=== PATIENT | male | born 1995 | race Two or more races ===

== ENCOUNTER 2025-06-17 10:32 | Emergency (ER) | payer OTHER, SELFPAY ==
[2025-06-17 10:36] VITALS: BP 127/77; PULSE 76; RESP 18; TEMP 36.9; O2SAT 99; BMI 35.5
--- NOTE | 2025-06-17 11:05 | PD.EDADULT ---
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 and some of the spit from the patient went into his mouth Limitations: no limitations Related Data Allergies Allergy/AdvReac Type Severity Reaction Status Date / Time No Known Allergies Allergy Verified 06/17/25 10:47 Review of Systems Review of Systems Systems Reviewed: All systems reviewed, normal except as documented Constitutional Constitutional: Reports system reviewed and no additional complaints, except as documented, Denies fever(s) and Denies headache(s) Eyes Eyes: Reports system reviewed and no additional complaints, except as documented and Denies blurry vision ENT Ears, Nose, Mouth, and Throat: Reports system reviewed and no additional complaints, except as documented, Denies headache(s), Denies nasal congestion and Denies nasal discharge Cardiovascular Cardiovascular: Reports system reviewed and no additional complaints, except as documented, Denies chest pain and Denies dyspnea Respiratory Respiratory: Reports system reviewed and no additional complaints, except as documented, Denies chest congestion, Denies cough and Denies dyspnea Gastrointestinal Gastrointestinal: Reports system reviewed and no additional complaints, except as documented and Denies abdominal pain Integumentary/Breasts Skin/Breast: Reports system reviewed and no additional complaints, except as documented and Denies rash Neurologic Neurologic: Reports system reviewed and no additional complaints, except as documented, Reports as per HPI and Denies headache(s) Past Medical History Social History SMOKING STATUS: Never smoker ED Exam General Limitations: Present no limitations General appearance: Present alert and in no apparent distress Head Head exam: Present atraumatic Eye Eye exam: Present normal appearance, PERRL and EOMI ENT ENT exam: Present normal exam, normal oropharynx and mucous membranes moist Neck Neck exam: Present normal inspection, full ROM and trachea midline Chest Chest inspection: Present normal inspection and symmetric chest wall rise Respiratory Respiratory exam: Present normal lung sounds bilaterally Cardiovascular Cardiovascular exam: Present regular rate, normal rhythm and normal heart sounds Abdominal Exam Abdominal exam: Present soft and normal bowel sounds Extremities Exam Extremities exam: Present normal inspection and full ROM Back Exam Back exam: Present normal inspection and full ROM Neurological Exam Neurological exam: Present alert, oriented X3 and CN II-XII intact Psychiatric Psychiatric exam: Present normal affect and normal mood Skin Skin exam: Present warm, dry, intact and normal color Course Quality Measures none Vital Signs Vital signs: Vital Signs Temperature 98.4 F 06/17/25 10:36 Pulse Rate 76 06/17/25 10:36 Respiratory Rate 18 06/17/25 10:36 Blood Pressure 127/77 06/17/25 10:36 Pulse Oximetry (%) 99 06/17/25 10:36 Oxygen Delivery Method Room Air 06/17/25 10:36 O2 saturation 99% on room air with normal limits Discharge Plan Plan Patient Disposition: HOME (Self Care) Discharge Disposition comment: Stable Problem List Clinical Impression: Hx of exposure to hazardous bodily fluids, Encounter related to worker's compensation claim Patient/Caregiver Discharge Instructions Education Materials: ED Medical Screening Exam, Nonemergent Additional Instructions: Please follow up with your primary care doctor in the next 24-48hrs for any worsening symptoms return here immediately Print Language: Angolan Stand Alone Forms: Jimena Award Info., Patient Portal Info Letter 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 Supervising Physician PA/ANN Supervising Physician: dr zabala [facility] Narrative MDM hospital course: 30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 and some of the spit from the patient went into his mouth Clinically patient well-appearing patient does not appear ill or toxic no acute distress Source patient was drawn for HIV and hepatitis Discussion was had about prophylaxis Source patient negative for HIV and hepatitis Patient discharged home in no distress to follow-up with primary care doctor in the next 24 to 48 hours and for any worsening symptoms to return to the ER immediately Clinical Information Provided by patient Medical Records Reviewed None Meds/Rx Considered, not Ordered None Labs/Rad/Tests considered, not Ordered None Chronic Illness/Social Conditions which may negatively complicate care or outcome(s)-explain: None or not applicable EKG EKG not done Lab Interpretation Labs: none Imaging Imaging interpretation: none Medication Administration(s) none Diagnosis Differential diagnosis: Exposure to bodily fluids, HIV, hepatitis Differential dx and/or dx ruled out: Exposure to bodily fluids Dispositon Disposition: Discharge Home
== END 2025-06-17 11:23 | disposition home or self-care (01) ==
LOC: SERX 11:27
PROVIDERS: Emergency Provider Emergency Medicine; PCP Nurse Practitioner Family
DX: Z04.89 Encounter for examination and observation for other specified reasons (principal); Z77.21 Contact with and (suspected) exposure to potentially hazardous body fluids
CPT/HCPCS: 99282